=== PATIENT | male | born 1985 | race African-American/Black ===

== ENCOUNTER 2018-02-14 11:42 | Inpatient (IN) | payer OTHER ==
[2018-02-14] MEDS ORDERED: ONDANSETRON 4 MG INJ IV (13:00)
[2018-02-14] MEDS ORDERED: MAGNESIUM HYDROXIDE 30ML CUP PO (13:00)
[2018-02-14] MEDS ORDERED: HYDROCODONE/APAP (5/325) TAB PO ×2 (13:00)
[2018-02-14] MEDS ORDERED: morphine 2 MG INJ IV (13:00)
[2018-02-14] MEDS ORDERED: NACL 0.9% 3 ML SYG IV (13:00)
[2018-02-14] MEDS ORDERED: ACETAMINOPHEN 325 MG TAB PO (13:00)
[2018-02-14] MEDS ORDERED: BISACODYL 10 MG SUPP PR (13:00)
[2018-02-14] MEDS ORDERED: DOCUSATE SODIUM 100 MG CAP PO (13:00)
[2018-02-14] MEDS ORDERED: ACETAMINOPHEN 650 MG SUPP PR (13:00)
[2018-02-14] MEDS: SOD CHLORIDE 0.9% 1,000 ML IV (13:28)
[2018-02-14 15:29] LABS: ADD UMIC NO; UR ASCORBIC ACID NEGATIVE (NEGATIVE); UR BILIRUBIN (Dip) NEGATIVE (NEGATIVE); UR BLOOD (Dip) NEGATIVE (NEGATIVE); UR CLARITY CLEAR (CLEAR); UR COLOR YELLOW (YELLOW); UR GLUCOSE (Dip) NEGATIVE (NEGATIVE); UR KETONES (Dip) NEGATIVE (NEGATIVE); UR LEUKOCYTE ESTERASE (Dip) NEGATIVE Leu/ul (NEGATIVE); UR NITRITE (Dip) NEGATIVE (NEGATIVE); UR SPECIFIC GRAVITY (Dip) 1.031 (1.003-1.030); UR TOTAL PROTEIN (Dip) NEGATIVE (NEGATIVE); UR UROBILINOGEN (Dip) NEGATIVE (NEGATIVE)
[2018-02-15] MEDS: SOD CHLORIDE 0.9% 1,000 ML IV ×3 (02:04→16:06)
[2018-02-15] MEDS: PANTOPRAZOLE 40 MG INJ IV (05:33)
[2018-02-15 06:03] LABS: ADD MAN DIFF? NO
[2018-02-15 06:06] LABS: BASOPHILS % 0.5 % (0.0-2.0); EOSINOPHILS # 0.3 10^3/ul (0.0-0.5); EOSINOPHILS % 3.4 % (0.0-7.0); HEMATOCRIT 39.2 % (42.0-52.0); HEMOGLOBIN 13.2 g/dl (14.0-18.0); LYMPHOCYTES # 2.7 10^3/ul (0.8-2.9); LYMPHOCYTES % 34.4 % (15.0-51.0); MEAN CORPUSCULAR HEMOGLOBIN 28.3 pg (29.0-33.0); MEAN CORPUSCULAR HGB CONC 33.7 g/dl (32.0-37.0); MEAN CORPUSCULAR VOLUME 83.9 fl (82.0-101.0); MONOCYTE # 0.6 10^3/ul (0.3-0.9); MONOCYTES % 7.2 % (0.0-11.0); NEUTROPHIL # 4.3 10^3/ul (1.6-7.5); NEUTROPHILS % 54.1 % (39.0-77.0); PLATELET COUNT 234 10^3/UL (140-415); RED BLOOD COUNT 4.67 10^6/ul (4.70-6.10); RED CELL DISTRIBUTION WIDTH 12.7 % (11.5-14.5)
[2018-02-15 06:06] LABS: WHITE BLOOD COUNT 7.9 10^3/ul (4.8-10.8)
[2018-02-15 06:17] LABS: HEMOGLOBIN A1C 5.8 % (0-5.9)
[2018-02-15 06:23] LABS: ALANINE AMINOTRANSFERASE 62 IU/L (13-69); ALBUMIN 3.9 g/dl (3.3-4.9); ALBUMIN/GLOBULIN RATIO 1.39; ALKALINE PHOSPHATASE 95 IU/L (42-121); ANION GAP 13 (8-16); ASPARTATE AMINO TRANSFERASE 29 IU/L (15-46); BILIRUBIN,INDIRECT 1.6 mg/dl (0-1.1); BILIRUBIN,TOTAL 1.6 mg/dl (0.2-1.3); BLOOD UREA NITROGEN 14 mg/dl (7-20); CALCIUM 8.8 mg/dl (8.4-10.2); CARBON DIOXIDE 26 mmol/L (21-31); CHLORIDE 107 mmol/L (97-110); CHOL/HDL RATIO 4.9 RATIO; CHOLESTEROL 157 mg/dl (100-200); CREATININE 0.94 mg/dl (0.61-1.24); GLUCOSE 85 mg/dl (70-220); HDL CHOLESTEROL 32 mg/dl (28-63); LDL CHOLESTEROL,CALCULATED 108 mg/dl; MAGNESIUM 1.8 mg/dl (1.7-2.5); PHOSPHORUS 2.9 mg/dl (2.5-4.9); POTASSIUM 3.8 mmol/L (3.5-5.1); SODIUM 142 mmol/L (135-144); TOTAL PROTEIN 6.7 g/dl (6.1-8.1); TRIGLYCERIDES 85 mg/dl (0-149)
[2018-02-15 06:36] LABS: FREE THYROXINE INDEX (Calc) 2.74 ug/ml (0.65-3.89); T3 UPTAKE 39.1 % (23.5-40.5)
[2018-02-15 06:49] LABS: THYROID STIMULATING HORMONE 0.856 MIU/L (0.465-4.680)
[2018-02-15] MEDS ORDERED: INFLUENZA VIRUS VACCINE 0.5 ML (DISPENSING) IM* (09:00)
[2018-02-15 13:11] LABS: HAAIG REFLEX REFLEX FILED
[2018-02-15 14:02] LABS: HEPATITIS B SURFACE ANTIGEN NEGATIVE (NEGATIVE)
[2018-02-15 14:20] LABS: HEPATITIS B CORE ANTIBODY NEGATIVE (NEGATIVE); HEPATITIS C VIRAL ANTIBODY NEGATIVE (NEGATIVE)
[2018-02-16] MEDS: SOD CHLORIDE 0.9% 1,000 ML IV (03:20)
[2018-02-16 03:59] LABS: ADD MAN DIFF? NO
[2018-02-16 04:04] LABS: BASOPHIL # 0.1 10^3/ul (0.0-0.1); BASOPHILS % 0.6 % (0.0-2.0); EOSINOPHILS # 0.2 10^3/ul (0.0-0.5); EOSINOPHILS % 2.5 % (0.0-7.0); HEMOGLOBIN 12.8 g/dl (14.0-18.0); LYMPHOCYTES # 2.8 10^3/ul (0.8-2.9); LYMPHOCYTES % 35.4 % (15.0-51.0); MEAN CORPUSCULAR HEMOGLOBIN 28.7 pg (29.0-33.0); MEAN CORPUSCULAR HGB CONC 34.6 g/dl (32.0-37.0); MONOCYTE # 0.6 10^3/ul (0.3-0.9); MONOCYTES % 7.9 % (0.0-11.0); NEUTROPHIL # 4.3 10^3/ul (1.6-7.5); NEUTROPHILS % 53.5 % (39.0-77.0); PLATELET COUNT 236 10^3/UL (140-415); RED BLOOD COUNT 4.46 10^6/ul (4.70-6.10); RED CELL DISTRIBUTION WIDTH 12.5 % (11.5-14.5)
[2018-02-16 04:33] LABS: ALANINE AMINOTRANSFERASE 58 IU/L (13-69); ALBUMIN 3.5 g/dl (3.3-4.9); ALKALINE PHOSPHATASE 90 IU/L (42-121); ANION GAP 15 (8-16); ASPARTATE AMINO TRANSFERASE 23 IU/L (15-46); BILIRUBIN,INDIRECT 0.8 mg/dl (0-1.1); BILIRUBIN,TOTAL 0.8 mg/dl (0.2-1.3); BLOOD UREA NITROGEN 14 mg/dl (7-20); CALCIUM 8.6 mg/dl (8.4-10.2); CARBON DIOXIDE 27 mmol/L (21-31); CHLORIDE 108 mmol/L (97-110); CREATININE 1.02 mg/dl (0.61-1.24); GLUCOSE 107 mg/dl (70-220); POTASSIUM 3.8 mmol/L (3.5-5.1); SODIUM 146 mmol/L (135-144); TOTAL PROTEIN 6.4 g/dl (6.1-8.1)
[2018-02-16] MEDS: PANTOPRAZOLE 40 MG INJ IV (05:42)
[2018-02-16] MEDS ORDERED: PROPOFOL 200 MG INJ (07:00)
[2018-02-16] MEDS ORDERED: CEFAZOLIN 1 GM INJ (07:00)
[2018-02-16] MEDS ORDERED: DIPHENHYDRAMINE 50 MG INJ IV (10:00)
[2018-02-16] MEDS ORDERED: MIDAZOLAM 1 MG/ML 2 ML INJ IV (10:00)
[2018-02-16] MEDS ORDERED: HYDROmorphONE (0.2 MG/ML) 10ML SYG IV (10:00)
[2018-02-16] MEDS ORDERED: FENTAnyl 50 MCG/ML VIAL IV ×2 (10:00)
[2018-02-16] MEDS ORDERED: MIDAZOLAM 1 MG/ML 2 ML INJ (10:34)
[2018-02-16] MEDS ORDERED: ACETAMINOPHEN 1000MG/100ML IV 100 ML (10:38)
[2018-02-16] MEDS ORDERED: DEXAMETHASONE 4 MG/ML 1 ML INJ (10:38)
[2018-02-16] MEDS ORDERED: SUCCINYLCHOLINE CHLORIDE 100 MG/5 ML SYG IV (10:38)
[2018-02-16] MEDS ORDERED: ONDANSETRON 4 MG INJ (10:38)
[2018-02-16] MEDS ORDERED: ROCURONIUM 50 MG INJ (10:38)
[2018-02-16] MEDS: BUPIVACAINE 0.25% (MPF) 30 ML INJ (11:06)
[2018-02-16] MEDS: LIDOCAINE 1%/EPI 30 ML INJ (11:06)
[2018-02-16] MEDS ORDERED: METOCLOPRAMIDE 10 MG INJ (11:09)
[2018-02-16] MEDS ORDERED: SUGAMMADEX SODIUM 200 MG/2 ML VIAL IV (11:31)
[2018-02-16] MEDS ORDERED: HYDROmorphONE 2 MG/ML SYG (12:05)
[2018-02-16] MEDS ORDERED: HYDROCODONE/APAP (5/325) TAB PO (13:00)
[2018-02-16] MEDS: MEPERIDINE 25 MG INJ IV (13:09)
[2018-02-16] MEDS: ONDANSETRON 4 MG INJ IV (13:10)
[2018-02-16] MEDS: HYDROmorphONE (0.2 MG/ML) 10ML SYG IV ×2 (13:19→13:26)
[2018-02-16] MEDS: HYDROCODONE/APAP (5/325) TAB PO ×2 (14:53→23:28)
[2018-02-16 23:10] LABS: ADD MAN DIFF? NO
[2018-02-16 23:14] LABS: WHITE BLOOD COUNT 13.1 10^3/ul (4.8-10.8)
[2018-02-16 23:14] LABS: BASOPHILS % 0.2 % (0.0-2.0); HEMATOCRIT 39.9 % (42.0-52.0); HEMOGLOBIN 13.8 g/dl (14.0-18.0); LYMPHOCYTES # 1.5 10^3/ul (0.8-2.9); LYMPHOCYTES % 11.1 % (15.0-51.0); MEAN CORPUSCULAR HEMOGLOBIN 28.8 pg (29.0-33.0); MEAN CORPUSCULAR HGB CONC 34.6 g/dl (32.0-37.0); MEAN CORPUSCULAR VOLUME 83.1 fl (82.0-101.0); MONOCYTE # 0.4 10^3/ul (0.3-0.9); MONOCYTES % 3.4 % (0.0-11.0); NEUTROPHIL # 11.1 10^3/ul (1.6-7.5); PLATELET COUNT 255 10^3/UL (140-415); RED CELL DISTRIBUTION WIDTH 12.4 % (11.5-14.5)
[2018-02-17] MEDS: SOD CHLORIDE 0.9% 1,000 ML IV (03:04)
[2018-02-17] MEDS: PANTOPRAZOLE 40 MG INJ IV (05:45)
[2018-02-17 06:40] LABS: ADD MAN DIFF? NO
[2018-02-17 06:45] LABS: BASOPHILS % 0.2 % (0.0-2.0); EOSINOPHILS % 0.3 % (0.0-7.0); HEMATOCRIT 39.3 % (42.0-52.0); HEMOGLOBIN 13.4 g/dl (14.0-18.0); LYMPHOCYTES # 2.2 10^3/ul (0.8-2.9); MEAN CORPUSCULAR HEMOGLOBIN 28.6 pg (29.0-33.0); MEAN CORPUSCULAR HGB CONC 34.1 g/dl (32.0-37.0); MEAN PLATELET VOLUME 11.1 fl (7.4-10.4); MONOCYTE # 0.8 10^3/ul (0.3-0.9); MONOCYTES % 7.2 % (0.0-11.0); NEUTROPHIL # 8.6 10^3/ul (1.6-7.5); NEUTROPHILS % 73.1 % (39.0-77.0); PLATELET COUNT 249 10^3/UL (140-415); RED BLOOD COUNT 4.68 10^6/ul (4.70-6.10); RED CELL DISTRIBUTION WIDTH 12.5 % (11.5-14.5)
[2018-02-17 06:45] LABS: WHITE BLOOD COUNT 11.7 10^3/ul (4.8-10.8)
[2018-02-17 07:10] LABS: ALANINE AMINOTRANSFERASE 97 IU/L (13-69); ALBUMIN 4.2 g/dl (3.3-4.9); ALKALINE PHOSPHATASE 101 IU/L (42-121); ANION GAP 16 (8-16); ASPARTATE AMINO TRANSFERASE 51 IU/L (15-46); BILIRUBIN,INDIRECT 0.8 mg/dl (0-1.1); BILIRUBIN,TOTAL 0.8 mg/dl (0.2-1.3); BLOOD UREA NITROGEN 8 mg/dl (7-20); CALCIUM 9.2 mg/dl (8.4-10.2); CARBON DIOXIDE 26 mmol/L (21-31); CHLORIDE 106 mmol/L (97-110); CREATININE 0.98 mg/dl (0.61-1.24); GLUCOSE 112 mg/dl (70-220); POTASSIUM 3.7 mmol/L (3.5-5.1); SODIUM 144 mmol/L (135-144)
[2018-02-17] MEDS: HYDROCODONE/APAP (5/325) TAB PO (09:33)
== END 2018-02-17 11:45 | disposition home or self-care (01) | DRG 419 ==
LOC: PP2 11:42
PROC: 0FT44ZZ Resection of Gallbladder, Percutaneous Endoscopic Approach (ICD-10-PCS; principal; 2018-02-16 10:38)
DX: K80.12 Calculus of gallbladder with acute and chronic cholecystitis without obstruction (principal); E66.9 Obesity, unspecified; Z68.34 Body mass index [BMI] 34.0-34.9, adult
CPT/HCPCS: 74181; 80053; 80061; 81003; 83036; 83735; 84100; 84436; 84443; 84479; 85025; 86704; 86709; 86803; 86850; 86900; 86901; 87081; 87340; 88304